=== PATIENT | male | born 1995 | race Caucasian/White ===

== ENCOUNTER 2020-04-11 18:26 | Emergency (ER) | payer OTHER, SELFPAY ==
[2020-04-11 18:26] VITALS: BP 135/81; PULSE 62; RESP 16; TEMP 36.4; BMI 23.9
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
[2020-04-11 19:53] VITALS: BP 138/74; PULSE 73; RESP 16; O2SAT 100
--- NOTE | 2020-04-11 20:10 | ED.DEP ---
ED Disposition - Plan for ED Patient: Disposition: Home or Assisted Living Diagnosis: Concussion, Cervical muscle strain Instructions: ED Concussion, ED Sprain Strain Neck Referrals: Shannon Phillips MD [STAFF PHYSICIAN] -
== END 2020-04-11 20:25 | disposition home or self-care (01) ==
PROVIDERS: Emergency Provider Emergency Medicine
DX: S06.0X1A Concussion with loss of consciousness of 30 minutes or less, initial encounter (principal); S16.1XXA Strain of muscle, fascia and tendon at neck level, initial encounter; V29.88XA Motorcycle rider (driver) (passenger) injured in other specified transport accidents, initial encounter; Y93.55 Activity, bike riding; Y92.9 Unspecified place or not applicable; Y99.8 Other external cause status
CPT/HCPCS: 70450; 72125; 99282